=== PATIENT | female | born 1935 | race African-American/Black ===

== ENCOUNTER 2016-07-29 14:39 | Inpatient (IN) ==
--- NOTE | 2016-07-29 15:01 | Emergency Department Note ---
Disposition Clinical Impression: Small bowel obstruction, Hyperkalemia Ventral hernia Qualifiers: Obstruction and gangrene presence: with obstruction but without gangrene Qualified Code(s): K43.6 - Other and unspecified ventral hernia with obstruction , without gangrene Disposition: Admitted As Inpatient Condition: Fair Referrals: Sanya Paul DO [Primary Care Provider] - Forms: Work/School Release, ED Satisfaction Letter Time of Disposition: 17:32 Abdominal Pain HPI - General Chief Complaint: ED Abdominal Pain Stated Complaint: abd pain Time Seen by Provider: 07/29/16 14:51 Source: patient, EMS Mode of arrival: EMS Limitations: no limitations Nursing Notes Reviewed: Yes Vital Signs Reviewed: Yes - History of Present Illness HPI Narrative: She complains of epigastric discomfort and nausea vomiting that started last couple of days. [facility] a [facility] of a [facility] and states several people are sick in the [facility]. Patient had 2 episodes of vomiting associated with this. The patient does still have her gallbladder. Pt Subjective Complaint: abdominal pain Onset (ago): day(s) Consistency: constant Location: RUQ Pain Severity: moderate Pain Scale: 6 Quality: cramping, aching Radiation: none Migration to: no migration Improves with: nothing Worsens with: nothing Associated symptoms: Reports: nausea, vomiting Treatments prior to arrival: none - Related Data Previous Rx's Medication Instructions Recorded DiphenhydraMINE [Benadryl] 25 mg PO Q6HR #20 capsule 07/19/16 Famotidine [Pepcid] 20 mg PO BID #20 tablet 07/19/16 Allergies Allergy/AdvReac Type Severity Reaction Status Date / Time Iodinated Contrast Media - AdvReac Hives Verified 07/19/16 12:57 Oral and Constitutional: Denies: fever, chills, weakness, weight change Eyes: Denies: eye pain, eye discharge, vision change ENT ED: Denies: ear pain, throat pain, dental pain, hearing loss, epistaxis, congestion, dysphagia Cardiovascular: Denies: chest pain, palpitations, dyspnea on exertion, edema, syncope Respiratory: Denies: cough, dyspnea, wheezes, hemoptysis, stridor Gastrointestinal: Reports: abdominal pain, nausea, vomiting. Denies: diarrhea, constipation, hematemesis, melena, hematochezia Genitourinary: Denies: dysuria, frequency, hematuria, discharge Musculoskeletal: Denies: back pain, neck pain, arthralgia, myalgia Integumentary: Denies: rash, abrasion, lesions Neurological: Denies: headache, weakness, numbness, paresthesias, confusion, abnormal gait, vertigo Psychiatric: Denies: anxiety, depression, suicidal thoughts, homicidal thoughts , auditory hallucinations, visual hallucinations Endocrine: Denies: fatigue Hematological/Lymphatic: Denies: easy bleeding, easy bruising Allergic/Immunologic: Denies: facial swelling, urticaria Abdominal Pain PMH - Past Medical History Medical history: Reports: asthma, atrial fibrillation, cancer, COPD, GERD, hypertension, renal disease Female Surgical History: Reports: cancer surgery, hysterectomy, knee replacement Psychiatric history: Reports: anxiety - Social History Smoking status: Never smoker Alcohol use: Reports: none Drug use: Reports: none Physical Exam - General Limitations: no limitations General appearance: alert, in no apparent distress - Head Head exam: atraumatic, normocephalic, normal inspection - Eye Eye exam: Present: normal appearance, PERRL, EOMI - ENT ENT exam: normal exam, normal oropharynx, mucous membranes moist - Neck Neck exam: Present: normal inspection, full ROM, trachea midline - Chest Chest inspection: Present: normal inspection, symmetric chest wall rise - Respiratory Respiratory exam: Present: normal lung sounds bilaterally - Cardiovascular Cardiovascular exam: Present: regular rate, normal rhythm, normal heart sounds - Abdominal Exam Abdominal exam: Present: tenderness Abdominal tenderness: Present: RUQ, LUQ, epigastrium - Extremities Exam Extremities exam: Present: normal inspection, full ROM. Absent: tenderness, pedal edema - Expanded Lower Extremity Exam Neurovascular/Tendon exam: Absent: motor deficit, sensory deficit, tendon deficit Gait: observed and normal - Back Exam Back exam: Present: normal inspection, full ROM. Absent: tenderness - Neurological Exam Neurological exam: Present: alert, oriented X3 - Psychiatric Psychiatric exam: Present: normal affect, normal mood - Skin Skin exam: Present: warm, dry, intact, normal color Course - Consultations Consultation #1: Discussed with who will evaluate the patient but wants patient admitted to the hospitalist. Time: 17:31 Consultation #2: Discussed with Dr. Lilia Massey, admit. Time: 17:43 Vital Signs Temperature 99.5 F 07/29/16 14:40 Pulse Rate 101 07/29/16 14:40 Respiratory Rate 16 02/13/17 14:40 Blood Pressure 195/121 07/29/16 14:40 O2 Sat by Pulse Oximetry 94 L 07/29/16 14:40 Temperature 99.5 F 07/29/16 14:40 Pulse Rate 92 07/29/16 17:26 Respiratory Rate 16 07/29/16 17:26 Blood Pressure 214/110 07/29/16 17:26 O2 Sat by Pulse Oximetry 92 L 07/29/16 17:26 Oxygen Delivery Oxygen Delivery Room Air Abdominal Pain - Lab Data Lab results reviewed: Yes I reviewed the patient's lab results. Result diagrams: 07/29/16 15:17 07/29/16 15:17 Lab Results 07/29/16 07/29/16 07/29/16 Range/Units 15:17 15:17 15:17 WBC 9.1 (4.3-11.1) K/mcL RBC 4.70 (3.82-4.97) M/mcL Hgb 13.3 (11.5-15.4) g/dL Hct 41.8 (35.3-44.9) % MCV 88.9 (83.0-100.0) fL MCH 28.3 (28.0-33.3) pg MCHC 31.8 (31.6-35.5) g/dL RDW 14.1 (11.5-14.5) % Plt Count 303 (140-400) K/mcL MPV 9.9 (9.4-12.4) fL Immature Gran % 0.2 (0-4) % Seg Neutrophils % 81.0 % Lymphocytes % 14.7 % Monocytes % 3.8 % Eosinophils % 0.1 % Basophils % 0.2 % Neutrophils # 7.3 (1.6-8.9) K/mcL Lymphocytes # 1.3 (0.6-4.6) K/mcL Monocytes # 0.3 (0.0-1.3) K/mcL Eosinophils # 0.0 (0.0-0.6) K/mcL Basophils # 0.0 (0.0-0.2) K/mcL PT 20.4 H (9.4-12.1) Seconds INR 1.9 APTT 38.4 H (26.0-36.0) Seconds Sodium 137 (136-145) mEq/L Potassium 6.1 H (3.5-4.5) mEq/L Chloride 103 (98-109) mEq/L Carbon Dioxide 26 (19-29) mEq/L BUN 37 H (7-20) mg/dL Creatinine 1.26 H (0.57-1.11) mg/dL Est GFR ( Amer) 49 L (> 60) Est GFR (Non-Af Amer) 41 L (> 60) BUN/Creatinine Ratio 29 H (6-26) Glucose 165 H (70-99) mg/dL Calculated Osmolality 296 (280-300) Calcium 9.9 (8.6-10.8) mg/dL Total Bilirubin 0.7 (0.2-1.2) mg/dL Direct Bilirubin 0.3 (0.0-0.5) mg/dL Indirect Bilirubin 0.4 (0.0-1.2) mg/dL AST 25 (5-34) Units/L ALT 38 (0-55) Units/L Alkaline Phosphatase 238 H (38-126) Units/L Serum Total Protein 8.1 (6.0-8.3) g/dL Albumin 3.4 L (3.5-5.0) g/dL Globulin 4.7 H (2.4-3.5) g/dL Albumin/Globulin Ratio 0.7 L (1.1-2.2) Amylase 28 (25-125) Units/L Lipase 4 L (8-78) Units/L Urine Color (Yellow) Urine Clarity (Clear) Urine pH (5.0-8.0) pH Units Ur Specific [place] (1.010-1.025) Urine Protein (Neg-Trace) mg/dL Urine Glucose (UA) (Normal) mg/dL Urine Ketones (Negative) mg/dL Urine Blood (Negative) Urine Nitrite (Negative) Urine Bilirubin (Negative) Urine Urobilinogen (Normal) mg/dL Ur Leukocyte Esterase (Negative) Urine Microscopic RBC (0-3) per hpf Urine Microscopic WBC (0-3) per hpf Ur Squamous Epith Cells (None-Few) per lpf Urine Bacteria (None-Few) per hpf Hyaline Casts (None-Few) per lpf Ur Culture Indicated? (NO) 07/29/16 Range/Units 16:15 WBC (4.3-11.1) K/mcL RBC (3.82-4.97) M/mcL Hgb (11.5-15.4) g/dL Hct (35.3-44.9) % MCV (83.0-100.0) fL MCH (28.0-33.3) pg MCHC (31.6-35.5) g/dL RDW (11.5-14.5) % Plt Count (140-400) K/mcL MPV (9.4-12.4) fL Immature Gran % (0-4) % Seg Neutrophils % % Lymphocytes % % Monocytes % % Eosinophils % % Basophils % % Neutrophils # (1.6-8.9) K/mcL Lymphocytes # (0.6-4.6) K/mcL Monocytes # (0.0-1.3) K/mcL Eosinophils # (0.0-0.6) K/mcL Basophils # (0.0-0.2) K/mcL PT (9.4-12.1) Seconds INR APTT (26.0-36.0) Seconds Sodium (136-145) mEq/L Potassium (3.5-4.5) mEq/L Chloride (98-109) mEq/L Carbon Dioxide (19-29) mEq/L BUN (7-20) mg/dL Creatinine (0.57-1.11) mg/dL Est GFR ( Amer) (> 60) Est GFR (Non-Af Amer) (> 60) BUN/Creatinine Ratio (6-26) Glucose (70-99) mg/dL Calculated Osmolality (280-300) Calcium (8.6-10.8) mg/dL Total Bilirubin (0.2-1.2) mg/dL Direct Bilirubin (0.0-0.5) mg/dL Indirect Bilirubin (0.0-1.2) mg/dL AST (5-34) Units/L ALT (0-55) Units/L Alkaline Phosphatase (38-126) Units/L Serum Total Protein (6.0-8.3) g/dL Albumin (3.5-5.0) g/dL Globulin (2.4-3.5) g/dL Albumin/Globulin Ratio (1.1-2.2) Amylase (25-125) Units/L Lipase (8-78) Units/L Urine Color Yellow (Yellow) Urine Clarity Cloudy A (Clear) Urine pH 6.5 (5.0-8.0) pH Units Ur Specific [place] 1.016 (1.010-1.025) Urine Protein 30 H (Neg-Trace) mg/dL Urine Glucose (UA) Normal (Normal) mg/dL Urine Ketones Negative (Negative) mg/dL Urine Blood Trace H (Negative) Urine Nitrite Negative (Negative) Urine Bilirubin Negative (Negative) Urine Urobilinogen Normal (Normal) mg/dL Ur Leukocyte Esterase Moderate H (Negative) Urine Microscopic RBC 0-3 (0-3) per hpf Urine Microscopic WBC 50-100 H (0-3) per hpf Ur Squamous Epith Cells Many H (None-Few) per lpf Urine Bacteria Many H (None-Few) per hpf Hyaline Casts None Seen (None-Few) per lpf Ur Culture Indicated? YES A (NO) - Radiology Data Radiology results reviewed: Yes I reviewed the patient's radiology results. Abdomen/Pelvis CT 07/29/16 14:52 IMPRESSION: 1. Findings of acute partial or early complete small bowel obstruction secondary to a small bowel containing infraumbilical ventral abdominal wall hernia. 2. Cholelithiasis with trace pericholecystic fluid. Although this fluid may be reactive secondary to the acute bowel process, acute cholecystitis cannot be completely excluded right upper quadrant ultrasound is recommended for further evaluation. 3. Stable enlarged left inguinal lymph node concerning for metastasis. D/ / Vin Hercules MD / Vin Hercules MD Interpreting Provider: Vin Hercules MD Gallbladder Ultrasound 07/29/16 15:00 IMPRESSION: 1. Cholelithiasis without sonographic evidence of acute cholecystitis. 2. Nonvisualized pancreas. 3. Simple right renal cyst. D/ / Vin Hercules MD / Vin Hercules MD Interpreting Provider: Vin Hercules MD
[2016-07-29 15:31] LABS: Basophils % 0.2 %; Eosinophils % 0.1 %; Hematocrit 41.8 % (35.3-44.9); Hemoglobin 13.3 g/dL (11.5-15.4); Immature Granulocytes % 0.2 % (0-4); Lymphocytes # 1.3 K/mcL (0.6-4.6); Lymphocytes % 14.7 %; Mean Corpuscular HGB Conc 31.8 g/dL (31.6-35.5); Mean Corpuscular Hemoglobin 28.3 pg (28.0-33.3); Mean Corpuscular Volume 88.9 fL (83.0-100.0); Mean Platelet Volume 9.9 fL (9.4-12.4); Monocytes # 0.3 K/mcL (0.0-1.3); Monocytes % 3.8 %; Neutrophils # 7.3 K/mcL (1.6-8.9); Platelet Count 303 K/mcL (140-400); Red Cell Distribution Width 14.1 % (11.5-14.5)
[2016-07-29 15:36] LABS: INR 1.9; Prothrombin Time 20.4 Seconds (9.4-12.1)
[2016-07-29 15:39] LABS: Activated Partial Thrombo Time 38.4 Seconds (26.0-36.0)
[2016-07-29 15:44] LABS: Albumin 3.4 g/dL (3.5-5.0); Albumin/Globulin Ratio 0.7 (1.1-2.2); Bilirubin,Direct 0.3 mg/dL (0.0-0.5); Bilirubin,Indirect 0.4 mg/dL (0.0-1.2); Bilirubin,Total 0.7 mg/dL (0.2-1.2); Calcium 9.9 mg/dL (8.6-10.8); Potassium 6.1 mEq/L (3.5-4.5); Total Protein 8.1 g/dL (6.0-8.3)
[2016-07-29 15:45] LABS: Globulin 4.7 g/dL (2.4-3.5)
[2016-07-29 16:39] LABS: Bilirubin,Urine Negative (Negative); Blood,Urine Trace (Negative); Clarity,Urine Cloudy (Clear); Color,Urine Yellow (Yellow); Glucose,Urine (UA) Normal (Normal); Ketones,Urine Negative (Negative); Leukocyte Esterase,Urine Moderate (Negative); Nitrite,Urine Negative (Negative); PH,Urine 6.5 pH Units (5.0-8.0); Protein,Urine 30 mg/dL (Neg-Trace); Specific Gravity,Urine 1.016 (1.010-1.025); Urobilinogen,Urine Normal (Normal)
[2016-07-29 16:42] LABS: Hyaline Casts,Urine None Seen per lpf (None-Few); Squamous Epithelial Cell,Urine Many per lpf (None-Few); WBC,Urine 50-100 per hpf (0-3)
[2016-07-29 17:01] LABS: RBC,Urine 0-3 per hpf (0-3)
[2016-07-29 17:02] LABS: Bacteria,Urine Many per hpf (None-Few)
[2016-07-29] MEDS ORDERED: cloNIDine HCl 0.1 MG TABLET PO ONE (17:31)
[2016-07-29] MEDS ORDERED: Albuterol 2.5 MG/3 ML NEBULIZER IH ONE (17:46)
[2016-07-29] MEDS ORDERED: *HR* Dextrose 50 % in Water (Syg) 50 ML SYRINGE IVP ONE (17:46)
[2016-07-29] MEDS ORDERED: Sodium Bicarbonate 50 MEQ/50 ML VIAL IVP ONE (17:46)
[2016-07-29] MEDS ORDERED: Insulin Human Regular 10 UNIT in 0.9 % Sodium Chloride 10 ML IV ONE (17:46)
--- NOTE | 2016-07-29 19:08 | General Surgery Consult Note ---
Date of Encounter: 07/29/16 Time of Encounter: 18:00 History of Present Illness Consult date: 07/29/16 Reason for consult: abdominal pain (Nausea, vomiting, ventral incisional hernia with possible small bowel obstruction) Requesting physician: Ovidio Mena History of present illness: 81-year-old resident of a local ECF transferred to [facility] for further evaluation of mid abdominal pain, nausea and vomiting. The patient is morbidly obese with a past medical history of abdominal cancer. Review of records indicated the patient had a previous hysterectomy for ovarian cancer approximately 5 years ago. After presenting to the emergency department a CT scan was obtained showing mild bibasilar atelectasis, gallstones, trace pericholecystic fluid, free fluid within the mesentery and pelvis and a stable enlarged left inguinal lymph node measuring approximately 4.2 cm highly consistent with metastatic disease. 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 On examination of these films extra medullary location of a right femoral intramedullary esperanza is also noted. The patient and her family corroborates that she has bony metastases for which she underwent ORIF of the right femur with intramedullary esperanza placement but since that has migrated outside the bone. The family indicates that her bone disease is not repairable. From the ECF indicated patient is DNR CC - arrest. Past medical history is notable for morbid obesity, ovarian cancer, asthma, chronic atrial fibrillation, COPD, gastroesophageal reflux disease, hypertension , and renal disease. She has a known ventral incisional hernia related to the hysterectomy for ovarian cancer. Surgeries include hysterectomy and right femur repair as noted above Social history: The patient is a resident of an F; she has never smoked, she denies any alcohol or illicit drug use. Allergies: The patient apparently developed an allergic response to oral iodinated contrast 5 days ago (07/24/16) Medications: MiraLAX 17 g by mouth daily hydrochlorothiazide 12.5 mg by mouth daily Losartan 100 mg by mouth daily Calcitriol 0.5 g by mouth daily Gabapentin 300 mg by mouth 3 times a day Lorazepam 1 mg by mouth twice a day Zofran 4 mg by mouth every 6 hours when necessary nausea vomiting Clotrimazole/betamethasone cream to groin and abdominal folds twice a day as needed Medical records do not indicate the patient is anticoagulated however review of her labs show chronic elevated PT/INR Physical examination morbidly obese female who appears to be in no acute distress. She is resting comfortably in her ED bed temperature is 99.5; pulse is currently 86, slightly irregular, range 86-101 ; respiratory rate 1618; blood pressure 214/110, repeat 198/114. The patient does not appear to be jaundiced, skin is warm and moist Lungs: Clear Cardiac: Slightly irregular rate, no appreciable murmurs Abdomen obese; patient indicates mid abdominal discomfort but this was minimally evident on palpation. Abdominal examination was limited by the patient's body habitus but it appears that she has a periumbilical hernia as evidenced on CT scan dated 07/24 and 07/29/2016. Bowel sounds were hypoactive. Laboratories: White count 9.1, hemoglobin 13.3, hematocrit 41.8. Platelet count 303,000. PT 20.4, INR 1.9 (range dating back to 07/01/16, he T as high as 23.7, INR was 2.1) Sodium 137, potassium 6.1, chloride 103, BUN 37, creatinine 1.26, estimated GFR 49 Alkaline phosphatase 238, bilirubin 0.7, AST 25, ALT 38; amylase 28 Impression: Morbidly obese 81-year-old with mid abdominal pain nausea and vomiting. Radiologic evidence of gallstones. The most recent CT also demonstrates mild bibasilar atelectasis, trace pericholecystic fluid as well as free flow in the mesentery and pelvis; the pericholecystic fluid appears more likely to be due to an intra-abdominal process rather than an acute cholecystitis. Patient has evidence of metastatic disease as evidenced by an enlarged left inguinal lymph node measuring 4.2 cm as well as significant bony erosion of the right femur. The patient has multiple medical comorbidities including a DNR CC- arrest status To my exam the patient is in mild distress. The CT from 07/24/2016 shows similar findings regarding the ventral incisional hernia but the free fluid in the mesentery and pelvis is a new finding. This may be indicative of early acute SBO. Recommendation: medical stabilization of the patient BP; reversal of the anticoagulation. Serial abdominal examinations to be completed along with a SBFT if the abdominal pain persists The history of ovarian cancer with obvious metastatic dissease as well as DNR -CC -arrest status may preclude surgical intervention but this will be discussed in greater detail with the patient and her family. Past Med Surg Social Fam HX - Past Medical History Medical history: asthma, atrial fibrillation, cancer, COPD, GERD, hypertension, renal disease Psychiatric history: anxiety - Social History Smoking Status: Never smoker Smokeless Tobacco Status: No Alcohol use: none Drug use: none Medications and Allergies DiphenhydraMINE [Benadryl] 25 mg PO Q6HR #20 capsule 07/19/16 [Rx] Famotidine [Pepcid] 20 mg PO BID #20 tablet 07/19/16 [Rx] Allergies Iodinated Contrast Media - Oral and Adverse Reaction (Verified 07/19/16 12:57) Hives Review of Systems All systems PM: A 10-system review of systems was performed and is negative for pertinent findings except as documented above in the HPI. General Surgery Exam Initial Vital Signs Temp Pulse Resp BP Pulse Ox 99.5 F 101 16 195/121 94 L 07/29/16 14:40 07/29/16 14:40 07/29/16 14:40 07/29/16 14:40 07/29/16 14:40 Exam Initial Vital Signs Temp Pulse Resp BP Pulse Ox 99.5 F 101 16 195/121 94 L 07/29/16 14:40 07/29/16 14:40 07/29/16 14:40 07/29/16 14:40 07/29/16 14:40 Results - Labs 07/29/16 15:17 07/29/16 15:17 Abnormal lab results PT 20.4 Seconds (9.4-12.1) H 07/29/16 15:17 APTT 38.4 Seconds (26.0-36.0) H 07/29/16 15:17 Potassium 6.1 mEq/L (3.5-4.5) H 07/29/16 15:17 BUN 37 mg/dL (7-20) H 07/29/16 15:17 Creatinine 1.26 mg/dL (0.57-1.11) H 07/29/16 15:17 Est GFR ( Amer) 49 (> 60) L 07/29/16 15:17 Est GFR (Non-Af Amer) 41 (> 60) L 07/29/16 15:17 BUN/Creatinine Ratio 29 (6-26) H 07/29/16 15:17 Glucose 165 mg/dL (70-99) H 07/29/16 15:17 Alkaline Phosphatase 238 Units/L (38-126) H 07/29/16 15:17 Albumin 3.4 g/dL (3.5-5.0) L 07/29/16 15:17 Globulin 4.7 g/dL (2.4-3.5) H 07/29/16 15:17 Albumin/Globulin Ratio 0.7 (1.1-2.2) L 07/29/16 15:17 Lipase 4 Units/L (8-78) L 07/29/16 15:17 Urine Clarity Cloudy (Clear) A 07/29/16 16:15 Urine Protein 30 mg/dL (Neg-Trace) H 07/29/16 16:15 Urine Blood Trace (Negative) H 07/29/16 16:15 Ur Leukocyte Esterase Moderate (Negative) H 07/29/16 16:15 Urine Microscopic WBC 50-100 per hpf (0-3) H 07/29/16 16:15 Ur Squamous Epith Cells Many per lpf (None-Few) H 07/29/16 16:15 Urine Bacteria Many per hpf (None-Few) H 07/29/16 16:15 Ur Culture Indicated? YES (NO) A 07/29/16 16:15 All other labs normal. Consult Discharge Plan - Plan Referrals: ColopySanya DO [Primary Care Provider] -
[2016-07-29] MEDS ORDERED: *HR* Morphine 2 MG/ML SYRINGE IVP ONE (20:46)
[2016-07-29] MEDS ORDERED: Naloxone 0.4 MG/ML INJ IVP PRN (21:02)
[2016-07-29] MEDS: 0.9 % Sodium Chloride 1,000 ML IVC SCH (21:42)
[2016-07-29] MEDS ORDERED: Ondansetron 4 MG/2 ML VIAL IM ONE (22:38)
[2016-07-29] MEDS ORDERED: *HR* Labetalol 20 MG/4 ML SYRINGE IVP ONE (22:39)
--- NOTE | 2016-07-29 22:53 | Internal Med History&Physical ---
Date of Encounter: 07/29/16 Time of Encounter: 20:00 Assessment and Plan (1) Small bowel obstruction Current visit: Yes Status: Acute CT scan of the abdomen and pelvis showed acute partial or early complete small bowel obstruction secondary to a small bowel containing infraumbilical ventral abdominal wall hernia. Pt is NPO. Consider NG tube if the pt is vomiting. Pain relief as needed. Surgeon Dr Weber is consulted. (2) Hyperkalemia Current visit: Yes Status: Acute Possibly due to CKD, and losartan. Pt was given kayexalate, insulin dextrose. Recheck potassium levels. (3) Atrial fibrillation Current visit: Yes Status: Chronic Rate controlled now Qualifiers: Atrial fibrillation type: chronic Qualified Code(s): I48.2 - Chronic atrial fibrillation (4) Chronic anticoagulation Current visit: Yes Status: Acute Pt is on warfarin and INR is subtherapeutic. Hold warfarin for possible surgery. Monitor INR (5) Ventral hernia Current visit: Yes Status: Acute Surgeon is consulted Qualifiers: Obstruction and gangrene presence: with obstruction but without gangrene Qualified Code(s): K43.6 - Other and unspecified ventral hernia with obstruction , without gangrene (6) UTI (urinary tract infection) Current visit: Yes Status: Acute Urinalysis is abnormal. Emperically started on ceftriaxone. Urine cultures pending. Qualifiers: Urinary tract infection type: site unspecified Hematuria presence: without hematuria Qualified Code(s): N39.0 - Urinary tract infection, site not specified (7) CKD (chronic kidney disease) stage 3, GFR 30-59 ml/min Current visit: Yes Status: Chronic Monitor renal function. Avoid nephrotoxics (8) Hypertension Current visit: Yes Status: Acute Labetolol PRN. Hold losartan, due to hyperkalemia Qualifiers: Hypertension type: essential hypertension Qualified Code(s): I10 - Essential (primary) hypertension (9) Metastatic disease Current visit: Yes Status: Chronic Possibly From ovarian cancer. (10) Cholelithiasis Current visit: Yes Status: Acute No evidence of cholecystitis Qualifiers: Cholelithiasis location: gallbladder Cholecystitis acuity: unspecified acuity Biliary obstruction: without biliary obstruction Qualified Code(s): K80.00 - Calculus of gallbladder with acute cholecystitis without obstruction (11) Full code status Current visit: Yes Status: Acute Pt and pt's POA (son: Geremias Brush: phone: [phone]; Amari Woods, phone# ) say "do what you have to do". Pt wants to be full code. Code status updated to full code. (12) DVT prophylaxis Current visit: Yes Status: Acute Hold warfarin. Start SCDs Internal Medicine - H&P: HPI Chief complaint: Abdominal pain Admitted From: Emergency Dept Plans for Post Hospital Care: Transfer [facility] History of present illness: Ms. 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 His objective emergency department with history of lower abdominal pain since yesterday. Pain is moderate to severe, non radiating, sharp; associated with nausea and vomiting. Apparently vomited me multiple times. No hematemesis. Last bowel movement was yesterday. She denies dysuria, hematuria , fever, chills. Denies chest pain, shortness of breath, significant cough or expectoration. She was evaluated in the emergency department and CT scan of the abdomen and pelvis, which showed acute partial or early complete small bowel obstruction secondary to a small bowel containing infraumbilical ventral abdominal wall hernia. Cholelithiasis but on gall bladder ultrasound, there is no evidence of cholecystitis. Pt was seen by surgeon Dr. Weber, who recommended non-surgical management at this time. He is admitted to the hospitalist service for further management. Past Med Surg Social Fam HX - Past Medical History Medical history: asthma, atrial fibrillation, cancer, COPD, GERD, hypertension, renal disease Psychiatric history: anxiety - Social History Smoking Status: Never smoker Smokeless Tobacco Status: No Alcohol use: none Drug use: none - Family History Mother Living Status: Age at : 79 Cause of : Heart Hx Family Cardiac Disorders: Yes Father Living Status: Age at : 85 Cause of : Heart Hx Family Cardiac Disorders: Yes Internal Medicine - H&P: Meds DiphenhydraMINE [Benadryl] 25 mg PO Q6HR #20 capsule 07/19/16 [Rx] Famotidine [Pepcid] 20 mg PO BID #20 tablet 07/19/16 [Rx] Advair 100-50 Diskus Q10-12H 07/30/16 [History] Calcitriol 0.5 mcg PO DAILY 07/30/16 [History] Clotrimazole/Betameth Dip CRM PRN 07/30/16 [History] Gabapentin 100 mg PO TID 07/30/16 [History] Hydrochlorothiazide 12.5 mg PO DAILY 07/30/16 [History] LORazepam [Ativan] 1 mg PO BID 07/30/16 [History] Losartan Potassium 100 mg PO DAILY 07/30/16 [History] Montelukast Sodium 10 mg PO DAILY 07/30/16 [History] Omeprazole 20 mg PO DAILY 07/30/16 [History] Ondansetron 4 mg PO Q6H PRN 07/30/16 [History] OxyCODONE/APAP 5/325 mg PO Q4-6H PRN 07/30/16 [History] Oxycontin 10 mg PO BID 07/30/16 [History] Percocet 5-325 mg Tablet mg PO Q4-6H PRN 07/30/16 [History] Polyethylene Glycol 3350 17 gm PO DAILY 07/30/16 [History] Voltaren 1 PRN 07/30/16 [History] Warfarin 6 mg PO DAILY 07/30/16 [History] Allergies Iodinated Contrast Media - Oral and Adverse Reaction (Verified 07/19/16 12:57) Hives All Systems PM: A 10-system review of systems was performed and is negative for pertinent findings except as documented above in the HPI. - Constitutional Vitals: Temp Pulse Resp BP Pulse Ox 99.6 F 108 18 188/95 92 L 07/29/16 21:26 07/29/16 21:26 07/29/16 21:26 07/29/16 21:26 07/29/16 21:26 Exam: General: Not in mild distress at the time of my evaluation. Obese HEENT: Oral mucosa is moist. No conjunctival palor or scleral icterus Neck: No obvious neck swellings Lungs: Clear to auscultation Cardiac: Irregular rhythm. No significant murmurs Abdomen: Obese. Tenderness in the infraumbilical area. Bowel sounds present Genitourinary: No maya catheter Neurological: Alert and oriented. No gross localizing deficits Psych: Not aggressive or agitated Extremities: leg edema present Skin: No generalized rash Internal Med - H&P Results - Labs CBC & Chem 7: 07/29/16 15:17 07/29/16 15:17 - Impressions ITS Impressions Abdomen/Pelvis CT 07/29/16 14:52 IMPRESSION: 1. Findings of acute partial or early complete small bowel obstruction secondary to a small bowel containing infraumbilical ventral abdominal wall hernia. 2. Cholelithiasis with trace pericholecystic fluid. Although this fluid may be reactive secondary to the acute bowel process, acute cholecystitis cannot be completely excluded right upper quadrant ultrasound is recommended for further evaluation. 3. Stable enlarged left inguinal lymph node concerning for metastasis. D/ / Vin Hercules MD / Vin Hercules MD Interpreting Provider: Vin Hercules MD Gallbladder Ultrasound 07/29/16 15:00 IMPRESSION: 1. Cholelithiasis without sonographic evidence of acute cholecystitis. 2. Nonvisualized pancreas. 3. Simple right renal cyst. D/ / Vin Hercules MD / Vin Hercules MD Interpreting Provider: Vin Hercules MD
[2016-07-29] MEDS: Pantoprazole 40 MG VIAL IVP SCH (23:26)
[2016-07-30] MEDS: *HR* Morphine 2 MG/ML SYRINGE IVP PRN ×10 (00:35→23:47)
[2016-07-30] MEDS: Ondansetron 4 MG/2 ML VIAL IVP PRN ×3 (05:44→20:50)
[2016-07-30] MEDS: Pantoprazole 40 MG VIAL IVP SCH (05:44)
[2016-07-30] MEDS ORDERED: Ipratropium/Albuterol Neb 3 ML IH PRN (05:55)
[2016-07-30 06:03] LABS: Basophils % 0.1 %; Hematocrit 40.6 % (35.3-44.9); Hemoglobin 12.7 g/dL (11.5-15.4); Immature Granulocytes % 0.3 % (0-4); Lymphocytes # 1.4 K/mcL (0.6-4.6); Lymphocytes % 17.1 %; Mean Corpuscular HGB Conc 31.3 g/dL (31.6-35.5); Mean Corpuscular Hemoglobin 27.7 pg (28.0-33.3); Mean Corpuscular Volume 88.6 fL (83.0-100.0); Mean Platelet Volume 10.3 fL (9.4-12.4); Monocytes % 12.3 %; Neutrophils # 5.5 K/mcL (1.6-8.9); Platelet Count 306 K/mcL (140-400); Red Blood Count 4.58 M/mcL (3.82-4.97); Red Cell Distribution Width 14.1 % (11.5-14.5); Segmented Neutrophils % 70.2 %
[2016-07-30 06:14] LABS: Prothrombin Time 22.5 Seconds (9.4-12.1)
[2016-07-30 06:30] LABS: Calcium 9.7 mg/dL (8.6-10.8); Magnesium 2.1 mg/dL (1.6-2.6); Potassium 5.1 mEq/L (3.5-4.5)
--- NOTE | 2016-07-30 10:47 | General Surgery Progress Note ---
Date of Encounter: 07/30/16 Time of Encounter: 10:35 Subjective Narrative: General Surgery: patient appears more comfortable, less abdominal tenderness to my examination but patient still describing "spitting up" Patient's son present at bedside, he is the patient's POA. He discussed possible surgery with his mother - the patient and the family appparently willing to proceed with surgery if needed. This was discussed in detail during my bedside encounter. Will order SBFT with barium (due to reaction to iodinated oral constrast last week) Laboratories: White count 7.9, hemoglobin 12.7 with hematocrit 40.6; platelet count 306,000 Potassium and proved to 0.1 (previously 6.1); BUN has increased to 40, creatinine has increased to 1.42; estimated GFR diminished to 43. PT/INR still elevated - 22.2/2.0. will require reveral if explor celiotomy planned. Objective Vital Signs - Last 8 Hours Temp Pulse Resp BP Pulse Ox 07/30/16 07:01 98.8 F 88 16 169/73 95 07/30/16 03:27 98.9 F 84 18 123/69 97 Intake and Output 07/29/16 07/30/16 07/30/16 23:59 07:59 15:59 Intake Total 625 / 625 Output Total 300 / 500 Balance 325 / 125 Intake: IV Fluids 625 / 625 0.9 % Sodium Chloride 1, 625 / 625 000 ML @ 100 mls/hr IVC . Q10H [facility] Rx#:[id number] Oral 0 / 0 Output: Urine 200 / 400 Emesis 100 / 100 Other: Meal NPO for breakfast Blood Glucose* 175 - Labs 07/30/16 05:22 07/30/16 05:22 Diabetes panel 07/30/16 Range/Units 05:22 Sodium 138 (136-145) mEq/L Potassium 5.1 H D (3.5-4.5) mEq/L Chloride 103 (98-109) mEq/L Carbon Dioxide 26 (19-29) mEq/L BUN 40 H (7-20) mg/dL Creatinine 1.42 H (0.57-1.11) mg/dL Glucose 188 H (70-99) mg/dL Calcium 9.7 (8.6-10.8) mg/dL Calcium panel 07/30/16 Range/Units 05:22 Calcium 9.7 (8.6-10.8) mg/dL Pituitary panel 07/30/16 Range/Units 05:22 Sodium 138 (136-145) mEq/L Potassium 5.1 H D (3.5-4.5) mEq/L Chloride 103 (98-109) mEq/L Carbon Dioxide 26 (19-29) mEq/L BUN 40 H (7-20) mg/dL Creatinine 1.42 H (0.57-1.11) mg/dL Glucose 188 H (70-99) mg/dL Calcium 9.7 (8.6-10.8) mg/dL Adrenal panel 07/30/16 Range/Units 05:22 Sodium 138 (136-145) mEq/L Potassium 5.1 H D (3.5-4.5) mEq/L Chloride 103 (98-109) mEq/L Carbon Dioxide 26 (19-29) mEq/L BUN 40 H (7-20) mg/dL Creatinine 1.42 H (0.57-1.11) mg/dL Glucose 188 H (70-99) mg/dL Calcium 9.7 (8.6-10.8) mg/dL Consult Discharge Plan - Plan Referrals: ColSanya hankins DO [Primary Care Provider] -
--- NOTE | 2016-07-30 14:34 | Internal Med Progress Note ---
<Saad Mckay - Last Filed: 07/30/16 15:24> Date of Encounter: 07/30/16 Time of Encounter: 14:33 - Assessment and plan (1) Small bowel obstruction Current Visit: Yes Status: Acute Assessment and plan: Possibly from adhesions versus intrabdominal process from possible recurrent ovarian cancer or ventral hernia. She is being followed by General Surgery. Appreciate Dr. Beauchamp recommendations and assistance with this patient. She will have a small bowel follow through. Her INR is therapeutic. this will need to be reveresed should she need surgery. She is currently having a small bowel follow through. If unsuccesful will precede with reversal of coumadin. we will continue to monitor her I's and Os Continue maintenance IV fluids. (2) Ventral hernia Current Visit: Yes Status: Acute Assessment and plan: surgery following. (3) Inguinal lymphadenopathy Current Visit: Yes Status: Acute Assessment and plan: patient has 4.2 X 3Cm enlarged left inguinal lymph node. concerning for metastatic cancer given her history and reports that her markers are increasing. Patient states that she will follow with her oncologist. (4) Immobility Current Visit: Yes Status: Acute Assessment and plan: patient is wheelchair bound at baseline. We will ensure proper skin care to avoid decubitus ulcers. (5) Cholelithiasis Current Visit: Yes Status: Acute Assessment and plan: No sonographic evidence of acute cholecystitis. (6) Elevated alkaline phosphatase level Current Visit: Yes Status: Acute Assessment and plan: etiology unclear could represent metastasis to the bone or possible hepatobiliary in origin. Will consider testing GGT or further imaging. (7) UTI (urinary tract infection) Current Visit: Yes Status: Acute Assessment and plan: patient is asymptomatic and also UA has many epithelial cells. I do not believe this represents a true UTI. I think we should be able to DC her antibiotics. I will discuss with my attending. (8) Atrial fibrillation Current Visit: Yes Status: Acute Assessment and plan: CHADSVASC2 (Age and HTN) Currently she is rate controlled. She was not on any rate controlling agents listed on her home meds. Coumadin is being held as she could potentially need surgery. If SBFT is succeful can resume coumadin when able to tolerate PO. If SBFT is unsuccesfull will need to reverse coumadin. I do not think she will need to bridge as she has low CHADSVASC2 score. (9) RADHA (acute kidney injury) Current Visit: Yes Status: Acute Assessment and plan: likley prerenal from SBO continue IV fluids. avoid nephrotoxins. (10) Hyperkalemia Current Visit: Yes Status: Acute Assessment and plan: trending down. Now 5.1 Likely from RADHA and losartan continue to hold losartan and trend K (11) DVT prophylaxis Current Visit: Yes Status: Acute Assessment and plan: INR currently 2.0 will add EPCDS if reversed. - Subjective Interval history: Mrs. Brush is an exceptionally pleasant 81 y.o. female that was admitted with a small bowel obstruction on 05/28/17. Today she states that she is still somewhat nauseated and had a small amount of emesis. She dose admit to some mild , crampy, diffuse abdominal pain. she denies any hamtochezia or melena. She states that her last BM was the day before yesterday and that she is not passing flatus. She denies chest pain,dyspnea, or dicomfort. 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 She denies a history of SBO, however she states that she has a history of Stage 4 ovarian cancer that was diagnosed with approximately 5 years ago. she states she was treated with Total hysterectomy and Chemotherapy. Her son states that she follows with the [facility] [place] and at her most recent visit her cancer marker had gone up. She has no further complaints or concerns at this time. - Constitutional Vitals: Temp Pulse Resp BP Pulse Ox 98.9 F 92 16 182/82 96 07/30/16 11:09 07/30/16 11:09 07/30/16 11:09 07/30/16 11:09 07/30/16 11:09 General appearance: Present: A&O X 3, pleasant, no acute distress - Head Head exam: Present: atraumatic, normal inspection, normocephalic - Eye Eye exam: Present: PERRL, conjuntiva pink, sclera anicteric Pupils: Present: PERRL - Neck Neck exam general surgery: Present: supple, trachea midline. Absent: lymphadenopathy - Respiratory Respiratory exam: Present: CTAB. Absent: accessory muscle use, rales, rhonchi, wheezes - Cardiovascular Cardiovascular exam: Present: RRR, +S1, +S2. Absent: diastolic murmur, gallop, rubs, systolic murmur - GI/Abdominal Additional comments: The abdomen is obese, mildly distended, bowel sounds are present/ sluggish. She has mild diffuse pain to palpation. No gaurding or rebound. - Extremities Exam Extremities exam: Present: warm, radial pulses palpable and symetrical. Absent : calf tenderness, cyanotic, pedal edema Internal Medicine: Result - Labs CBC & Chem 7: 07/30/16 05:22 07/30/16 05:22 Labs: Short CBC 07/30/16 Range/Units 05:22 WBC 7.9 (4.3-11.1) K/mcL Hgb 12.7 (11.5-15.4) g/dL Hct 40.6 (35.3-44.9) % Plt Count 306 (140-400) K/mcL Neutrophils # 5.5 (1.6-8.9) K/mcL BMP 07/30/16 05:22 Sodium 138 Potassium 5.1 H D Chloride 103 Carbon Dioxide 26 BUN 40 H Creatinine 1.42 H Glucose 188 H Calcium 9.7 - ABG Interpretation ABG results: PT/INR, D-dimer PT 22.5 Seconds (9.4-12.1) H 07/30/16 05:54 Consult Discharge Plan - Plan Referrals: Sanya Paul DO [Primary Care Provider] - <Jorge Philippe H - Last Filed: 07/30/16 15:45> Date of Encounter: 07/30/16 - Constitutional Vitals: Temp Pulse Resp BP Pulse Ox 98.9 F 92 16 182/82 96 07/30/16 11:09 07/30/16 11:09 07/30/16 11:09 07/30/16 11:09 07/30/16 11:09 Internal Medicine: Result - Labs CBC & Chem 7: 07/30/16 05:22 07/30/16 05:22 Labs: Short CBC 07/30/16 Range/Units 05:22 WBC 7.9 (4.3-11.1) K/mcL Hgb 12.7 (11.5-15.4) g/dL Hct 40.6 (35.3-44.9) % Plt Count 306 (140-400) K/mcL Neutrophils # 5.5 (1.6-8.9) K/mcL BMP 07/30/16 05:22 Sodium 138 Potassium 5.1 H D Chloride 103 Carbon Dioxide 26 BUN 40 H Creatinine 1.42 H Glucose 188 H Calcium 9.7 - ABG Interpretation ABG results: PT/INR, D-dimer PT 22.5 Seconds (9.4-12.1) H 07/30/16 05:54 - Attending Attestation Small bowel series to be performed later today. I examined this patient and my medical decision-making was reviewed with the COTTON DISPATCHER/PA/Advanced Practice Nurse/Resident Physician. I agree with the documented findings, disposition and treatment plan as described except to the extent set forth below.
[2016-07-30] MEDS: *HR* Labetalol 20 MG/4 ML SYRINGE IVP PRN ×3 (15:12→22:39)
--- NOTE | 2016-07-30 19:06 | Electrocardiograph Report ---
[place] [id number] Test Date: 2016-07-29 Pat Name: Farhana Brush Department: 103 Room: 3A Gender: F Yard Cleaner: : 1935 Requested By: Ovidio Mena Order Number: [id number] Reading MD: Edwige Gandhi Measurements Intervals Pyatt Rate: 103 P: 52 TN: 168 QRS: -43 QRSD: 88 T: 52 QT: 313 QTc: 373 Interpretive Statements SINUS TACHYCARDIA MARKED LEFT AXIS DEVIATION Electronically Signed On 07-30-2016 19:04:38 EST by Edwige Gandhi
[2016-07-30] MEDS: Acetaminophen 325 MG TABLET PO PRN (22:42)
[2016-07-30] MEDS: 0.9 % Sodium Chloride 1,000 ML IVC SCH (23:19)
[2016-07-31] MEDS: Acetaminophen 325 MG TABLET PO PRN (03:50)
[2016-07-31] MEDS: Ondansetron 4 MG/2 ML VIAL IVP PRN ×2 (03:50→12:08)
[2016-07-31] MEDS: *HR* Labetalol 20 MG/4 ML SYRINGE IVP PRN (04:04)
[2016-07-31] MEDS: Pantoprazole 40 MG VIAL IVP SCH (05:53)
[2016-07-31 06:02] LABS: INR 2.3; Prothrombin Time 25.7 Seconds (9.4-12.1)
[2016-07-31 06:20] LABS: Calcium 9.4 mg/dL (8.6-10.8); Potassium 4.8 mEq/L (3.5-4.5)
--- NOTE | 2016-07-31 09:41 | Internal Med Progress Note ---
<Saad Mckay - Last Filed: 07/31/16 09:46> Date of Encounter: 07/31/16 Time of Encounter: 09:39 - Assessment and plan (1) Small bowel obstruction Current Visit: Yes Status: Acute Assessment and plan: Possibly from adhesions versus intrabdominal process from possible recurrent ovarian cancer or ventral hernia. She is being followed by General Surgery. Appreciate Dr. Beauchamp recommendations and assistance with this patient. SBFT pending. she is improving with less Nausea and also now having flatus. Her INR is therapeutic. This will need to be reversed should she need surgery. If unsuccesful will precede with reversal of coumadin. we will continue to monitor her I's and Os and electrolytes. Continue maintenance IV fluids. (2) Ventral hernia Current Visit: Yes Status: Acute Assessment and plan: surgery following. (3) Inguinal lymphadenopathy Current Visit: Yes Status: Acute Assessment and plan: patient has 4.2 X 3Cm enlarged left inguinal lymph node. concerning for metastatic cancer given her history and reports that her markers are increasing. Patient states that she will follow with her oncologist. (4) Immobility Current Visit: Yes Status: Acute Assessment and plan: patient is wheelchair bound at baseline. We will ensure proper skin care to avoid decubitus ulcers. (5) Cholelithiasis Current Visit: Yes Status: Acute Assessment and plan: No sonographic evidence of acute cholecystitis. (6) UTI (urinary tract infection) Current Visit: Yes Status: Acute (7) Atrial fibrillation Current Visit: Yes Status: Acute Assessment and plan: CHADSVASC2 (Age and HTN) Currently she is rate controlled. She was not on any rate controlling agents listed on her home meds. Coumadin is being held as she could potentially need surgery. If SBFT is succeful can resume coumadin when able to tolerate PO. If SBFT is unsuccesfull will need to reverse coumadin. I do not think she will need to bridge as she has low CHADSVASC2 score. (8) RADHA (acute kidney injury) Current Visit: Yes Status: Acute Assessment and plan: likley prerenal from SBO stable continue IV fluids. avoid nephrotoxins. (9) Hyperkalemia Current Visit: Yes Status: Acute Assessment and plan: trending down. Now 4.8 Likely from RADHA and losartan continue to hold losartan and trend K will consider changing home medication given that she came in with a markedly elevated K. (10) Accelerated hypertension Current Visit: Yes Status: Acute Assessment and plan: secondary to cessation of home PO medications. She has Labetolol ordered PRN every 4 hours with parameters. Looking at MAR it dose not seem that she has been getting this every 4 hours when parameters are met. I will discuss with medical staff assistant. I will also consider adding some scheduled IV Hydralazine. (11) DVT prophylaxis Current Visit: Yes Status: Acute Assessment and plan: INR currently 2.3 will add EPCDS if reversed. - Subjective Interval history: No major events overnight. Mrs Brush states that she is feeling better today. She states that she has less nausea, no emesis,and less abdominal pain today. She dose admit to flatus but no bowel movements. She denies any new aches or pains. She has no further complaints or concerns at this time. - Constitutional Vitals: Temp Pulse Resp BP Pulse Ox 98.8 F 76 14 195/84 95 07/31/16 07:31 07/31/16 07:31 07/31/16 07:31 07/31/16 07:31 07/31/16 07:31 General appearance: Present: A&O X 3, pleasant, no acute distress - Head Head exam: Present: atraumatic, normocephalic - Eye Eye exam: Present: PERRL, conjuntiva pink, sclera anicteric Pupils: Present: PERRL - Neck Neck exam general surgery: Present: supple, trachea midline. Absent: lymphadenopathy - Respiratory Respiratory exam: Present: CTAB. Absent: accessory muscle use, rales, rhonchi, wheezes - Cardiovascular Cardiovascular exam: Present: RRR, +S1, +S2. Absent: diastolic murmur, gallop, rubs, systolic murmur - GI/Abdominal GI/Abdominal exam: Present: hernia (ventral), normal bowel sounds, soft, tenderness (mild diffuse), no peritoneal signs. Absent: distended, firm, guarding - Extremities Exam Extremities exam: Present: warm, radial pulses palpable and symetrical. Absent : calf tenderness, cyanotic, pedal edema - Skin Skin exam: Present: dry, intact Internal Medicine: Result - Labs CBC & Chem 7: 07/30/16 05:22 07/31/16 05:26 Labs: BMP 07/31/16 05:26 Sodium 141 Potassium 4.8 H Chloride 106 Carbon Dioxide 25 BUN 37 H Creatinine 1.41 H Glucose 165 H Calcium 9.4 - ABG Interpretation ABG results: PT/INR, D-dimer PT 25.7 Seconds (9.4-12.1) H 07/31/16 05:46 Consult Discharge Plan - Plan Referrals: Colopy,Sanya Villalpando DO [Primary Care Provider] - <Jorge Philippe H - Last Filed: 07/31/16 10:02> Date of Encounter: 07/31/16 - Constitutional Vitals: Temp Pulse Resp BP Pulse Ox 98.8 F 76 14 195/84 95 07/31/16 07:31 07/31/16 07:31 07/31/16 07:31 07/31/16 07:31 07/31/16 07:31 Internal Medicine: Result - Labs CBC & Chem 7: 07/30/16 05:22 07/31/16 05:26 Labs: [facility] 07/31/16 05:26 Sodium 141 Potassium 4.8 H Chloride 106 Carbon Dioxide 25 BUN 37 H Creatinine 1.41 H Glucose 165 H Calcium 9.4 - ABG Interpretation ABG results: PT/INR, D-dimer PT 25.7 Seconds (9.4-12.1) H 07/31/16 05:46 - Attending Attestation small bowel series to be completed Hydralazine IV started Surgery recommendations appreciated I examined this patient and my medical decision-making was reviewed with the CERAMIC MOLD DESIGNER/PA/Advanced Practice Nurse/Resident Physician. I agree with the documented findings, disposition and treatment plan as described except to the extent set forth below.
--- NOTE | 2016-07-31 11:00 | General Surgery Progress Note ---
Date of Encounter: 07/31/16 Time of Encounter: 11:00 Subjective Patient reports: no new complaints Narrative: SBFT started late yesterday still in progress. Little progression of oral contrast during the night but preliminary reading per [facility] indicates presence of an ileus which will impede completion of the SBFT. The films were personally reviewed with [facility]. Patient with low grade fever, 99.9 this AM but remains hemodynamicllay stable. BP still severely elevated, 187/83 - 195/84. PT 25.7/INR 2.3, which will delay surgery if surgical intervention is required. Anticoagulation has "increased" despite no such medications administered during this hospitalization. Will continue to follow with you. Objective Vital Signs - Last 8 Hours Temp Pulse Resp BP Pulse Ox 07/31/16 10:48 99.9 F H 66 18 187/83 93 L 07/31/16 07:31 98.8 F 76 14 195/84 95 07/31/16 03:23 98.8 F 83 14 188/93 93 L Intake and Output 07/30/16 07/31/16 07/31/16 23:59 07:59 15:59 Intake Total 100 / 100 0 / 0 Output Total 200 / 200 Balance 100 / 100 -200 / -200 Intake: IV Fluids 100 / 100 Rocephin 1,000 MG In 100 / 100 Dextrose 5% (Minibag+) 100 ML 100 ML @ 200 mls/ hr IVPB Q24H [facility] Rx#: [id number] Oral 0 / 0 0 / 0 Output: Urine 200 / 200 Other: Meal npo NPO # Urine Diapers 1 1 1 Weight 138.431 kg Blood Glucose* 155 142 Patient Weight 07/31/16 23:59 Weight 138.431 kg - Labs 07/30/16 05:22 07/31/16 05:26 Diabetes panel 07/31/16 Range/Units 05:26 Sodium 141 (136-145) mEq/L Potassium 4.8 H (3.5-4.5) mEq/L Chloride 106 (98-109) mEq/L Carbon Dioxide 25 (19-29) mEq/L BUN 37 H (7-20) mg/dL Creatinine 1.41 H (0.57-1.11) mg/dL Glucose 165 H (70-99) mg/dL Calcium 9.4 (8.6-10.8) mg/dL Calcium panel 07/31/16 Range/Units 05:26 Calcium 9.4 (8.6-10.8) mg/dL Pituitary panel 07/31/16 Range/Units 05:26 Sodium 141 (136-145) mEq/L Potassium 4.8 H (3.5-4.5) mEq/L Chloride 106 (98-109) mEq/L Carbon Dioxide 25 (19-29) mEq/L BUN 37 H (7-20) mg/dL Creatinine 1.41 H (0.57-1.11) mg/dL Glucose 165 H (70-99) mg/dL Calcium 9.4 (8.6-10.8) mg/dL Adrenal panel 07/31/16 Range/Units 05:26 Sodium 141 (136-145) mEq/L Potassium 4.8 H (3.5-4.5) mEq/L Chloride 106 (98-109) mEq/L Carbon Dioxide 25 (19-29) mEq/L BUN 37 H (7-20) mg/dL Creatinine 1.41 H (0.57-1.11) mg/dL Glucose 165 H (70-99) mg/dL Calcium 9.4 (8.6-10.8) mg/dL Consult Discharge Plan - Plan Referrals: ColopySanya DO [Primary Care Provider] -
[2016-07-31] MEDS: *HR* Morphine 2 MG/ML SYRINGE IVP PRN ×3 (12:07→20:22)
[2016-08-01] MEDS: *HR* Morphine 2 MG/ML SYRINGE IVP PRN ×6 (00:15→13:32)
[2016-08-01] MEDS: Ondansetron 4 MG/2 ML VIAL IVP PRN ×2 (00:15→06:16)
[2016-08-01] MEDS: 0.9 % Sodium Chloride 1,000 ML IVC SCH ×4 (02:05→13:31)
[2016-08-01] MEDS: Pantoprazole 40 MG VIAL IVP SCH (06:15)
[2016-08-01 06:43] LABS: Hematocrit 39.2 % (35.3-44.9); Hemoglobin 12.2 g/dL (11.5-15.4); Mean Corpuscular HGB Conc 31.1 g/dL (31.6-35.5); Mean Corpuscular Hemoglobin 27.6 pg (28.0-33.3); Mean Corpuscular Volume 88.7 fL (83.0-100.0); Mean Platelet Volume 10.1 fL (9.4-12.4); Platelet Count 270 K/mcL (140-400); Red Blood Count 4.42 M/mcL (3.82-4.97); Red Cell Distribution Width 13.8 % (11.5-14.5)
[2016-08-01 06:52] LABS: Calcium 9.3 mg/dL (8.6-10.8)
[2016-08-01] MEDS: *HR* Labetalol 20 MG/4 ML SYRINGE IVP PRN (10:08)
[2016-08-01 11:53] LABS: INR 1.9
--- NOTE | 2016-08-01 13:23 | Discharge Summary ---
<Saad Mckay - Last Filed: 08/01/16 13:18> Date of Encounter: 08/01/16 Time of Encounter: 13:18 - Discharge Diagnosis (1) Small bowel obstruction Status: Acute (2) Ventral hernia Status: Acute (3) Inguinal lymphadenopathy Status: Acute (4) Immobility Status: Acute (5) Cholelithiasis Status: Acute (6) UTI (urinary tract infection) Status: Acute (7) Atrial fibrillation Status: Acute (8) RADHA (acute kidney injury) Status: Acute (9) Hyperkalemia Status: Acute (10) Accelerated hypertension Status: Acute (11) DVT prophylaxis Status: Acute - Discharge Medications Home Medications: Clotrimazole/Betameth Dip CRM [Lotrisone CRM] 1 appl TP BID PRN 07/30/16 [ History] Diclofenac Sodium [Voltaren] 1 appl TP QID PRN 07/30/16 [History] Fluticasone/Salmeterol [Advair 100-50 Diskus] 1 each IH Q12H 07/30/16 [History] HydrALAZINE 10 mg IVP Q6HR vial 08/01/16 [Rx] Ipratropium/Albuterol Neb [Duoneb] 3 ml IH [id number] PRN #0 inhsol 08/01/16 [Rx] Labetalol 10 mg IVP Q4H PRN #0 syringe 08/01/16 [Rx] Morphine [Morphine Sulfate] 2 mg IVP Q2H PRN #0 syringe 08/01/16 [Rx] Naloxone [Narcan] 0.4 mg IVP Q2MIN PRN #0 inj 08/01/16 [Rx] Ondansetron [Zofran] 4 mg IVP Q6HR PRN #0 vial 08/01/16 [Rx] Pantoprazole [Protonix] 40 mg IVP 0630 vial 08/01/16 [Rx] Allergies/Adverse Reactions: Allergies Iodinated Contrast Media - Oral and Adverse Reaction (Verified 07/19/16 12:57) Hives Date of admission: 07/30/16 03:02 Primary care physician: Sanya Villalpando Colopy Consults: 07/31/16 11:19 Consult to Surgery [CONS] Routine Consulting Provider: Kel Weber Reason for Consult: SBO Call Completed: Yes Discharging clinician: Saad Mckay Anticipated date of discharge: 08/01/16 - Patient Status Disposition: Transfer Other Condition: Fair Functional capacity at discharge: wheelchair bound Overall status at discharge: patient is not back to baseline - Discharge Instructions Follow Up With: Sanya Paul DO [Primary Care Provider] - - Diet and Activity Activity: as per physical therapy Diet: other (NPO) Hospital course: Ms. Brush is a 81 year old female with a history of stage 4 ovarian cancer diagnosed 5 years ago and treated with EMILIA, and chemotherapy. 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 This makes her wheelchair bound. She was admitted with a small bowel obstruction. General Surgery was consulted. she was treated conservatively with bowel rest. She would undergo a small bowel follow through that was unsuccesful at relieving her bowel obstruction ( appeared to be partial on CT). She would have a follow up KUB this AM which showed contrast still in the small bowel indicative of a SBO. I had a lengthy conversation with the patient and her daughter. I have also discussed the case with general surgery. given her history of Ovarian cancer. An enlarging large left inguinal lymph node and report from family that her tumor markers were rising we suspect that the obstruction may be from recurrent Ovarian cancer. As such we feel she would benefit from a multidisciplinary team including her oncologist at the [facility]. The patient and her family are all in agreement that this is the course we should take. We will transfer her to the [facility]. - Time Spent with Patient Total time spent providing and/or coordinating discharge services: Greater than 30 minutes (Approximately 50 minutes was spent discussing plan with patient , family, and coordinating transfer) - Constitutional Vitals: Temp Pulse Resp BP Pulse Ox 98.6 F 87 16 163/80 94 L 08/01/16 10:48 08/01/16 10:48 08/01/16 10:48 08/01/16 10:48 08/01/16 10:48 General appearance: Present: A&O X 3, pleasant, no acute distress - Head Head exam: Present: atraumatic, normal inspection, normocephalic - Eye Eye exam: Present: PERRL, conjuntiva pink, sclera anicteric Pupils: Present: PERRL - Neck Neck exam general surgery: Present: supple, trachea midline. Absent: lymphadenopathy - Respiratory Respiratory exam: Present: CTAB. Absent: accessory muscle use, rales, rhonchi, wheezes - Cardiovascular Cardiovascular exam: Present: RRR, +S1, +S2. Absent: diastolic murmur, gallop, rubs, systolic murmur - GI/Abdominal Additional comments: obese, distended mildly, sluggish bowel sounds, tympanic to percussion, mild diffuse tenderness to palpation. No guarding. - Extremities Exam Extremities exam: Present: warm, radial pulses palpable and symetrical. Absent : calf tenderness, cyanotic, pedal edema - Skin Skin exam: Present: dry, intact <Jorge Philippe H - Last Filed: 08/01/16 14:09> Date of Encounter: 08/01/16 Date of admission: 07/30/16 03:02 Primary care physician: Sanya Villalpando Colopy Consults: 07/31/16 11:19 Consult to Surgery [CONS] Routine Consulting Provider: Kel Weber Reason for Consult: SBO Call Completed: Yes Hospital course: Ms. Brush is a 81 year old female - Time Spent with Patient Total time spent providing and/or coordinating discharge services: - Constitutional Vitals: Temp Pulse Resp BP Pulse Ox 98.6 F 87 16 163/80 94 L 08/01/16 10:48 08/01/16 10:48 08/01/16 10:48 08/01/16 10:48 08/01/16 10:48 - Attending Attestation Abdominal x-ray suggests persistent small bowel obstruction. Accepted to be transferred to [facility] I examined this patient and my medical decision-making was reviewed with the DIRECTOR OF PERIOPERATIVE SERVICES/PA/Advanced Practice Nurse/Resident Physician. I agree with the documented findings, disposition and treatment plan as described except to the extent set forth below.
--- NOTE | 2016-08-01 17:24 | General Surgery Progress Note ---
Date of Encounter: 08/01/16 Time of Encounter: 17:00 Subjective Patient reports: no new complaints Narrative: Small bowel nondiagnostic as the oral contrast has not progressed/advanced through the small bowel. The bowel pattern does not appear obstructed but rather more consistent with an ileus. Air within the colon is evident on KUB completed this morning. I presented this evening to recommend initiation of clear liquid diet and also providing some "push" to assist advancement of the contrast, however, nursing has informed me that the patient is being transferred to [facility]. In light of her history of stage IV ovarian cancer, rising tumor markers, and significantly enlarged left inguinal lymph node consistent with metastatic disease - Vic to [facility] certainly appears to be the best decision for this patient to allow a multidisciplinary approach to this rather complex patient. Objective Vital Signs - Last 8 Hours Temp Pulse Resp BP Pulse Ox 08/01/16 14:25 98.9 F 70 16 151/72 94 L 08/01/16 10:48 98.6 F 87 16 163/80 94 L Intake and Output 08/01/16 08/01/16 08/01/16 07:59 15:59 23:59 Intake Total 129 / 129 871 / 871 Output Total 0 / 0 Balance 129 / 129 871 / 871 Intake: IV Fluids 129 / 129 871 / 871 0.9 % Sodium Chloride 1, 129 / 129 871 / 871 000 ML @ 100 mls/hr IVC . Q10H [facility] Rx#:[id number] Oral 0 / 0 0 / 0 Output: Urine 0 / 0 Other: Meal Breakfast Percent of Meal Consumed 0% # Urine Diapers 0 1 Weight 139.735 kg Blood Glucose* 148 132 Patient Weight 08/01/16 23:59 Weight 139.735 kg - Labs 08/01/16 06:14 08/01/16 06:14 Diabetes panel 08/01/16 Range/Units 06:14 Sodium 139 (136-145) mEq/L Potassium 4.0 (3.5-4.5) mEq/L Chloride 105 (98-109) mEq/L Carbon Dioxide 25 (19-29) mEq/L BUN 28 H (7-20) mg/dL Creatinine 1.10 (0.57-1.11) mg/dL Glucose 146 H (70-99) mg/dL Calcium 9.3 (8.6-10.8) mg/dL Calcium panel 08/01/16 Range/Units 06:14 Calcium 9.3 (8.6-10.8) mg/dL Pituitary panel 08/01/16 Range/Units 06:14 Sodium 139 (136-145) mEq/L Potassium 4.0 (3.5-4.5) mEq/L Chloride 105 (98-109) mEq/L Carbon Dioxide 25 (19-29) mEq/L BUN 28 H (7-20) mg/dL Creatinine 1.10 (0.57-1.11) mg/dL Glucose 146 H (70-99) mg/dL Calcium 9.3 (8.6-10.8) mg/dL Adrenal panel 08/01/16 Range/Units 06:14 Sodium 139 (136-145) mEq/L Potassium 4.0 (3.5-4.5) mEq/L Chloride 105 (98-109) mEq/L Carbon Dioxide 25 (19-29) mEq/L BUN 28 H (7-20) mg/dL Creatinine 1.10 (0.57-1.11) mg/dL Glucose 146 H (70-99) mg/dL Calcium 9.3 (8.6-10.8) mg/dL Consult Discharge Plan - Plan Referrals: Sanya Paul DO [Primary Care Provider] -
[2016-08-01 20:02] VITALS: BP 145/77
== END 2016-08-01 20:50 | disposition critical access hospital (66) | DRG 394 ==
LOC: EMEROO 14:39 → 3ANU 14:39 → SUATTDRO 07-30 03:02
PROVIDERS: ADMIT Nurse Practitioner Family; ATTEND Internal Medicine